=== PATIENT | female | born 1970 | race Two or more races ===

== ENCOUNTER 2021-11-04 21:37 | Inpatient (IN) | payer MEDICAID ==
[~2021-11-04] VITALS: Ht 152.4 cm; Wt 53.3 kg
[2021-11-05] MEDS ORDERED: ZOLPIDEM TARTRATE 10 MG TABLET PO PRN (02:15)
[2021-11-05] MEDS ORDERED: OLANZapine 5 MG RAPDIS TABLET PO PRN (02:15)
[2021-11-05 08:02] VITALS: BP 100/63
[2021-11-05] MEDS ORDERED: INFLUENZA VIRUS VACCINE QVS 2021-22 (6MO+)/PF 60 MCG/0.5 ML SYRINGE IM. ONE (09:15)
[2021-11-05] MEDS ORDERED: ACETAMINOPHEN 325 MG TABLET PO PRN (09:45)
[2021-11-05] MEDS ORDERED: GuaiFENesin/D-METHORPHAN [SUGAR-FREE] 200-20MG/10 ML SYRUP UDCUP PO PRN (09:45)
[2021-11-05] MEDS ORDERED: PROMETHAZINE HCL 25 MG TABLET PO PRN ×2 (09:45)
[2021-11-05] MEDS ORDERED: HydrOXYzine PAMOATE 50 MG CAPSULE PO PRN (09:45)
[2021-11-05] MEDS ORDERED: TUBERCULIN, PURIFIED PROTEIN DERIVATIVE 5 TU/0.1 ML SYRINGE ID ONE (09:45)
[2021-11-05] MEDS ORDERED: MAGNESIUM HYDROXIDE SUSPENSION 30 ML UDCUP PO PRN (09:45)
[2021-11-05] MEDS ORDERED: LOPERAMIDE HCL 2 MG CAPSULE PO PRN (09:45)
[2021-11-05] MEDS ORDERED: MAG HYDROX/AL HYDROX/SIMETH ES 30 ML SUSPENSION UDCUP PO PRN (09:45)
[2021-11-05] MEDS ORDERED: OLANZapine 5 MG RAPDIS TABLET PO SCH (13:00)
[2021-11-05] MEDS ORDERED: LURASIDONE HCL 20 MG TABLET PO PRN (14:00)
[2021-11-05] MEDS: THIAMINE 100 MG TABLET PO SCH (16:07)
[2021-11-05 16:09] VITALS: BP 102/73
[2021-11-05] MEDS ORDERED: LURASIDONE HCL 40 MG TABLET PO SCH (17:00)
[2021-11-05] MEDS: MELATONIN 5 MG TABLET PO SCH (20:21)
[2021-11-05] MEDS: SERTRALINE HCL 50 MG TABLET PO SCH (20:21)
[2021-11-06 02:15] VITALS: BP 102/66
[2021-11-06 07:53] LABS: BASOPHILS % (AUTO) 0.8 % (0.0-2.0); EOSINOPHILS % (AUTO) 3.7 % (1.0-6.0); HEMATOCRIT 40.7 % (36-46); HEMOGLOBIN 13.8 g/dL (12.0-16.0); LYMPHOCYTES # (AUTO) 2.4 K/uL (1.0-4.8); LYMPHOCYTES % (AUTO) 44.5 % (22.0-44.0); MEAN CORPUSCULAR HGB CONC 33.9 G/dL (31.0-37.0); MEAN CORPUSCULAR VOLUME 89 fL (80-100); MONOCYTES # (AUTO) 0.3 K/uL (0.1-1.0); MONOCYTES % (AUTO) 6.2 % (2.0-9.0); NEUTROPHILS # (AUTO) 2.5 K/uL (1.8-7.7); NEUTROPHILS % (AUTO) 44.8 % (40.0-70.0); PLATELET COUNT (AUTO) 128 K/uL (150-450)
[2021-11-06 08:16] LABS: HEMOGLOBIN A1C 5.8 % (3.8-5.6)
[2021-11-06 08:26] VITALS: BP 109/62
[2021-11-06 08:26] LABS: ALANINE AMINOTRANSFERASE 19 U/L (12-78); ALBUMIN 3.8 g/dL (3.4-5.0); ALKALINE PHOSPHATASE 84 U/L (46-116); ANION GAP 7 mmol/L (8-16); ASPARTATE AMINOTRANSFERASE 15 U/L (15-37); BILIRUBIN,TOTAL 0.2 mg/dL (0.1-1.0); CALCIUM, TOTAL 8.9 mg/dL (8.8-10.5); CARBON DIOXIDE 28 mmol/L (22-29); CHLORIDE 105 mmol/L (98-107); CHOL/HDL RATIO 3.2 (3.9-5.7); CHOLESTEROL 171 mg/dL (131-200); CREATININE 0.63 mg/dL (0.60-1.30); FREE T4 (FREE THYROXINE) 1.11 ng/dL (0.76-1.46); GLOMERULAR FILTR. RATE CALC > 60 mL/min (>60); GLUCOSE,RANDOM 112 mg/dL (70-110); HDL CHOLESTEROL 53 mg/dL (40-60); LDL CHOL (CALC.) 93 mg/dL (0-130); POTASSIUM 3.9 mmol/L (3.5-5.1); SODIUM SERUM 140 mmol/L (136-145); THYROID STIMULATING HORMONE 3.28 uIU/mL (0.36-3.74); TOTAL PROTEIN, SERUM 7.5 g/dL (6.4-8.2); TRIGLYCERIDES 124 mg/dL (15-150); UREA NITROGEN, BLOOD 18 mg/dL (7-18)
[2021-11-06] MEDS: OMEGA-3/DHA/EPA/FISH OIL 1,000 MG CAPSULE PO SCH (08:54)
[2021-11-06] MEDS: FOLIC ACID 1 MG TABLET PO SCH (08:54)
[2021-11-06] MEDS: THIAMINE 100 MG TABLET PO SCH ×2 (08:55→17:00)
[2021-11-06] MEDS: MULTIVITAMINS WITH MINERALS, THERAPEUTIC TABLET PO SCH (08:55)
[2021-11-06] MEDS ORDERED: FLUoxetine HCL 20 MG CAPSULE PO SCH (09:00)
[2021-11-06] MEDS ORDERED: DiphenhydrAMINE HCL 50 MG/ML VIAL IM ONE (15:15)
[2021-11-06] MEDS ORDERED: HALOPERIDOL LACTATE 5 MG/ML VIAL IM ONE (15:15)
[2021-11-06] MEDS ORDERED: LORazepam 2 MG/ML VIAL IM ONE (15:15)
[2021-11-06 16:14] VITALS: BP 118/79
[2021-11-06] MEDS ORDERED: LURASIDONE HCL 60 MG TABLET PO SCH (17:00)
[2021-11-06] MEDS: SERTRALINE HCL 50 MG TABLET PO SCH (20:18)
[2021-11-06] MEDS: MELATONIN 5 MG TABLET PO SCH (20:18)
[2021-11-07] MEDS: LORazepam 2 MG TABLET PO PRN ×2 (00:05→08:37)
[2021-11-07 01:17] VITALS: BP 114/71
[2021-11-07 07:44] LABS: BASOPHILS % (AUTO) 0.9 % (0.0-2.0); EOSINOPHILS % (AUTO) 3.5 % (1.0-6.0); HEMATOCRIT 37.6 % (36-46); HEMOGLOBIN 12.8 g/dL (12.0-16.0); LYMPHOCYTES # (AUTO) 2.8 K/uL (1.0-4.8); LYMPHOCYTES % (AUTO) 47.2 % (22.0-44.0); MEAN CORPUSCULAR HEMOGLOBIN 29.8 pg (26.0-34.0); MEAN CORPUSCULAR HGB CONC 34.1 G/dL (31.0-37.0); MEAN CORPUSCULAR VOLUME 88 fL (80-100); MONOCYTES # (AUTO) 0.4 K/uL (0.1-1.0); MONOCYTES % (AUTO) 6.3 % (2.0-9.0); NEUTROPHILS # (AUTO) 2.5 K/uL (1.8-7.7); NEUTROPHILS % (AUTO) 42.1 % (40.0-70.0); PLATELET COUNT (AUTO) 115 K/uL (150-450); RED CELL DISTRIBUTION WIDTH 12.6 % (11.5-14.5)
[2021-11-07] MEDS: OMEGA-3/DHA/EPA/FISH OIL 1,000 MG CAPSULE PO SCH (08:07)
[2021-11-07] MEDS: THIAMINE 100 MG TABLET PO SCH ×2 (08:07→16:05)
[2021-11-07] MEDS: MULTIVITAMINS WITH MINERALS, THERAPEUTIC TABLET PO SCH (08:07)
[2021-11-07] MEDS: FOLIC ACID 1 MG TABLET PO SCH (08:07)
[2021-11-07 08:10] VITALS: BP 119/69
[2021-11-07] MEDS ORDERED: QUEtiapine FUMARATE 100 MG TABLET PO PRN (15:15)
[2021-11-07 16:49] VITALS: BP 103/67
[2021-11-07] MEDS ORDERED: LORazepam 2 MG TABLET PO PRN (18:15)
[2021-11-07] MEDS ORDERED: SERTRALINE HCL 50 MG TABLET PO SCH (21:00)
== END 2021-11-07 21:38 | disposition left against medical advice (07) | DRG 750 ==
LOC: B3A 11-05 02:00
PROVIDERS: ADMIT Psychiatry & Neurology Psychiatry; ATTEND Psychiatry & Neurology Psychiatry
DX: F25.9 Schizoaffective disorder, unspecified (principal); F32.A Depression, unspecified; Z53.29 Procedure and treatment not carried out because of patient's decision for other reasons; Z79.899 Other long term (current) drug therapy
CPT/HCPCS: 80053; 80061; 83036; 84436; 84439; 84443; 85025; 86592; J1200; J1630; J2060; Q9967